=== PATIENT | female | born 1930 | race Two or more races ===

== ENCOUNTER 2017-04-18 05:21 | Inpatient (IN) | payer MEDICARE ==
[~2017-04-18] VITALS: Ht 162.6 cm; Wt 65.8 kg
[2017-04-18] MEDS ORDERED: METHOTREXATE2.5 MG PO (05:40)
[2017-04-18] MEDS ORDERED: AMLODIPINE BESYL5 MG ORAL (05:40)
[2017-04-18] MEDS ORDERED: FOLIC ACID1 MG ORAL (05:40)
[2017-04-18] MEDS ORDERED: PLAQUENIL200 MG ORAL (05:40)
[2017-04-18] MEDS ORDERED: INH300 MG ORAL (05:40)
[2017-04-18] MEDS ORDERED: HUMIRA40 MG/0.2 SUBQ (05:40)
[2017-04-18] MEDS ORDERED: ATORVASTATIN CA20 MG ORAL (05:40)
[2017-04-18] MEDS ORDERED: DIPHENOXYLATE-1 EACH PO (05:40)
[2017-04-18] MEDS ORDERED: MONTELUKAST SOD10 MG ORAL (05:40)
[2017-04-18] MEDS ORDERED: DAILY MULTIVIT1 EAC3 PO (05:41)
[2017-04-18] MEDS ORDERED: VITAMIN D400 INTLU ORAL (05:41)
[2017-04-18] MEDS ORDERED: ALEVE220 M2 PO (05:41)
[2017-04-18] MEDS ORDERED: ASPIR 8181 MG ORAL (05:41)
[2017-04-18] MEDS ORDERED: Morphine Sulfate 2mg/ml Inj IVP ONE (06:00)
--- NOTE | 2017-04-18 06:20 | Emergency Room Report ---
History of Present Illness General Chief Complaint: Diarrhea Source: Patient (Mayank Pineda M.D.) Present Illness HPI The patient presents with weakness and abdominal cramps with diarrhea. The diarrhea is been a foul yellow color. Denies any blood. 7 vomiting but has felt nauseated. Her doctor prescribed for her over the phone number tell. She' s been taking that constantly and it hasn't affected the diarrhea. She states the pain has been a 6/10 in crampiness or in the lower abdomen recently. The patient is being treated for rheumatoid arthritis. She took methotrexate a day earlier this week however the diarrhea had been for several days before that. In addition to that she is on Humira. She's been on Humira for 3-4 months and it has improved her rheumatoid arthritis. She has no prior history of GI disorders. She denies any contacts, recent travel or unusual foods. She denies any chest pain, cough or sore throat. Her joint pain is improved recently. She denies dysuria or hematuria. She feels weak and was confused earlier in the week about taking her medication. She has not been eating. The weakness is generalized. Some dizziness when standing. (Mayank Pineda M.D.) Allergies: Coded Allergies: TRAMADOL (Verified Allergy, Unknown, 04/18/17) stomach cramps Patient History Past Medical History: see triage record Social History: Denies: smoking, alcohol use, drug use Social History Narrative with son and daughter Last Menstrual Period: None Now: No Reviewed Nursing Documentation: PMH: Agreed, PSxH: Agreed (Mayank Pineda M.D.) Nursing Documentation-PMH Hx Hypertension: Yes - hyperlipidemia Hx Cancer: Yes - Breast Cancer (Mayank Pineda M.D.) Review of Systems All Other Systems: negative except mentioned in HPI (Mayank Pineda M.D.) Physical Exam Vital Signs Date Time Temp Pulse Resp B/P (MAP) Pulse Ox O2 Delivery O2 Flow Rate FiO2 04/18/17 05:24 98.1 89 20 119/73 98 Room Air Sp02 EP Interpretation: reviewed, normal General Appearance: well appearing, no apparent distress, GCS 15, thin Head: normocephalic Eyes: bilateral eye normal inspection, bilateral eye other - arcus ENT: moist mucus membranes Neck: supple Respiratory: lungs clear, normal breath sounds Cardiovascular #1: regular rate, rhythm Cardiovascular #2: 2+ radial (R) Gastrointestinal: normal inspection, normal bowel sounds, no mass, non- distended, no guarding, no rebound, tenderness - lower abdomen Rectal: heme positive stool - yellow Genitourinary: no CVA tenderness Musculoskeletal: back normal, gait/station normal, normal range of motion, swelling - MCP Neurologic: alert, oriented x3, grossly normal Psychiatric: mood/affect normal Skin: normal inspection, warm/dry (Mayank Pineda M.D.) Medical Decision Making Diagnostic Impression: Primary Impression: Abdominal pain Qualified Codes: R10.32 - Left lower quadrant pain Additional Impressions: GI bleeding Qualified Codes: K92.2 - Gastrointestinal hemorrhage, unspecified Weakness Diarrhea Qualified Codes: R19.7 - Diarrhea, unspecified Rheumatoid arthritis Qualified Codes: M05.79 - Rheumatoid arthritis with rheumatoid factor of multiple sites without organ or systems involvement Use of Humira and methotrexate ER Course Patient on methotrexate and Humira with diarrhea and weakness. DDx: viral gastroenteritis, colitis, ischemic bowel, adverse reaction to medication, diverticulitis, diverticulosis, opportunistic infection, tumor, invasive diarrhea, dehydration, cardiac cause of weakness amongst others. At risk patient due to immune active medications. Evidence of blood in stool. Weakness needs evaluation for possible cardiac cause. Evaluation with EKG, labs , CT abdomen/pelvis. Treatment with IV hydration, zofran and small dose morphine. Labs significant for low WBC, slight anemia. UA and lytes normal. Some improvement with IV hydration and meds. Needs admission for observation and further work up. Contact Dr. Carrillo for admission. Pending CT scan. Signed out to Dr. Adams. Laboratory Tests Test 04/18/17 06:20 04/18/17 07:25 White Blood Count 5.1 K/UL (4.8-10.8) Red Blood Count 3.76 M/UL (4.20-5.40) L Hemoglobin 11.9 G/DL (12.0-16.0) L Hematocrit 35.0 % (37.0-47.0) L Mean Corpuscular Volume 93 FL (80-99) Mean Corpuscular Hemoglobin 31.6 PG (27.0-31.0) H Mean Corpuscular Hemoglobin Concent 33.9 G/DL (32.0-36.0) Red Cell Distribution Width 13.4 % (11.6-14.8) Platelet Count 298 K/UL (150-450) Mean Platelet Volume 6.4 FL (6.5-10.1) L Neutrophils (%) (Auto) 70.8 % (45.0-75.0) Lymphocytes (%) (Auto) 20.1 % (20.0-45.0) Monocytes (%) (Auto) 7.2 % (1.0-10.0) Eosinophils (%) (Auto) 0.9 % (0.0-3.0) Basophils (%) (Auto) 1.0 % (0.0-2.0) Prothrombin Time Pending Prothrombin Time INR Pending PTT Pending Sodium Level 140 MMOL/L (136-145) Potassium Level 4.2 MMOL/L (3.5-5.1) Chloride Level 104 MMOL/L (98-107) Carbon Dioxide Level 25 MMOL/L (21-32) Anion Gap 11 mmol/L (5-15) Blood Urea Nitrogen 13 mg/dL (7-18) Creatinine 1.0 MG/DL (0.55-1.30) Estimate Glomerular Filtration Rate mL/min (>60) Glucose Level 101 MG/DL (74-106) Calcium Level 9.2 MG/DL (8.5-10.1) Total Bilirubin 0.7 MG/DL (0.2-1.0) Aspartate Amino Transferase (AST) 35 U/L (15-37) Alanine Aminotransferase (ALT) Pending Alkaline Phosphatase 55 U/L (46-116) Total Creatine Kinase 84 U/L (26-308) Troponin I 0.000 ng/mL (0.000-0.056) Total Protein 7.1 G/DL (6.4-8.2) Albumin 3.2 G/DL (3.4-5.0) L Globulin 3.9 g/dL Albumin/Globulin Ratio 0.8 (1.0-2.7) L Lipase 98 U/L (73-393) Urine Color Pale yellow Urine Appearance Clear Urine pH 7 (4.5-8.0) Urine Specific [place] 1.010 (1.005-1.035) Urine Protein Negative (NEGATIVE) Urine Glucose (UA) Negative (NEGATIVE) Urine Ketones Negative (NEGATIVE) Urine Occult Blood 1+ (NEGATIVE) H Urine Nitrite Negative (NEGATIVE) Urine Bilirubin Negative (NEGATIVE) Urine Urobilinogen Normal MG/DL (0.0-1.0) Urine Leukocyte Esterase Negative (NEGATIVE) Urine RBC Pending Urine WBC Pending Urine Squamous Epithelial Cells Pending Urine Bacteria Pending (Mayank Pineda M.D.) ER Course Please refer to the initial history examined the presentation At this time essentially the CT abdomen pelvis was pending There is evidence of diverticulosis no evidence of diverticulitis patient has done better with intervention in the ER And continued admission to panel Labs Test 04/18/17 06:20 04/18/17 07:25 White Blood Count 5.1 K/UL (4.8-10.8) Red Blood Count 3.76 M/UL (4.20-5.40) Hemoglobin 11.9 G/DL (12.0-16.0) Hematocrit 35.0 % (37.0-47.0) Mean Corpuscular Volume 93 FL (80-99) Mean Corpuscular Hemoglobin 31.6 PG (27.0-31.0) Mean Corpuscular Hemoglobin Concent 33.9 G/DL (32.0-36.0) Red Cell Distribution Width 13.4 % (11.6-14.8) Platelet Count 298 K/UL (150-450) Mean Platelet Volume 6.4 FL (6.5-10.1) Neutrophils (%) (Auto) 70.8 % (45.0-75.0) Lymphocytes (%) (Auto) 20.1 % (20.0-45.0) Monocytes (%) (Auto) 7.2 % (1.0-10.0) Eosinophils (%) (Auto) 0.9 % (0.0-3.0) Basophils (%) (Auto) 1.0 % (0.0-2.0) Prothrombin Time 9.4 SEC (9.30-11.50) Prothromb Time International Ratio 0.9 (0.9-1.1) Activated Partial Thromboplast Time 21 SEC (23-33) Sodium Level 140 MMOL/L (136-145) Potassium Level 4.2 MMOL/L (3.5-5.1) Chloride Level 104 MMOL/L (98-107) Carbon Dioxide Level 25 MMOL/L (21-32) Anion Gap 11 mmol/L (5-15) Blood Urea Nitrogen 13 mg/dL (7-18) Creatinine 1.0 MG/DL (0.55-1.30) Estimat Glomerular Filtration Rate mL/min (>60) Glucose Level 101 MG/DL (74-106) Calcium Level 9.2 MG/DL (8.5-10.1) Total Bilirubin 0.7 MG/DL (0.2-1.0) Aspartate Amino Transf (AST/SGOT) 35 U/L (15-37) Alanine Aminotransferase (ALT/SGPT) 19 U/L (12-78) Alkaline Phosphatase 55 U/L (46-116) Total Creatine Kinase 84 U/L (26-308) Troponin I 0.000 ng/mL (0.000-0.056) Total Protein 7.1 G/DL (6.4-8.2) Albumin 3.2 G/DL (3.4-5.0) Globulin 3.9 g/dL Albumin/Globulin Ratio 0.8 (1.0-2.7) Lipase 98 U/L (73-393) Urine Color Pale yellow Urine Appearance Clear Urine pH 7 (4.5-8.0) Urine Specific [place] 1.010 (1.005-1.035) Urine Protein Negative (NEGATIVE) Urine Glucose (UA) Negative (NEGATIVE) Urine Ketones Negative (NEGATIVE) Urine Occult Blood 1+ (NEGATIVE) Urine Nitrite Negative (NEGATIVE) Urine Bilirubin Negative (NEGATIVE) Urine Urobilinogen Normal MG/DL (0.0-1.0) Urine Leukocyte Esterase Negative (NEGATIVE) Urine RBC 2-4 /HPF (0 - 2) Urine WBC 0-2 /HPF (0 - 2) Urine Squamous Epithelial Cells Occasional /LPF Urine Bacteria Few /HPF (NONE) (DAVI ADAMS D.O.) EKG Diagnostic Results Rate: normal Rhythm: NSR ST Segments: no acute changes (Mayank Pineda M.D.) Rhythm Strip Diag. Results EP Interpretation: yes Rhythm: NSR, no PVC's, no ectopy (Mayank Pineda M.D.) CT/MRI/US Diagnostic Results CT/MRI/US Diagnostic Results : Impression CT abdomen pelvis: Impression: Diverticulosis involving the colon. No obvious diverticulitis. Atherosclerotic disease. Spondylosis Bilateral renal cysts. Small hypodensity in the liver probably a cyst not well characterized Hiatal hernia (JAMDAVI FOWLER D.O.) Status: improved (Mayank Pineda M.D.) Status: improved (DAVI ADAMS D.O.) Disposition: ADMITTED INPATIENT Condition: Serious Referrals: NOT CHOSEN MIRELA/,REFERRING (PCP) Mayank Pineda M.D. Apr 18, 2017 06:20 DAVI ADAMS D.O. Apr 18, 2017 10:20
[2017-04-18 07:08] VITALS: BP 161/67
[2017-04-18 07:09] LABS: EOSINOPHILS % (AUTO) 0.9 % (0.0-3.0); LYMPHOCYTES % (AUTO) 20.1 % (20.0-45.0); MEAN CORPUSCULAR HEMOGLOBIN 31.6 PG (27.0-31.0); MEAN CORPUSCULAR HGB CONC 33.9 G/DL (32.0-36.0); MEAN CORPUSCULAR VOLUME 93 FL (80-99); MEAN PLATELET VOLUME 6.4 FL (6.5-10.1); MONOCYTES % (AUTO) 7.2 % (1.0-10.0); NEUTROPHILS % (AUTO) 70.8 % (45.0-75.0); PLATELET COUNT 298 K/UL (150-450); RED BLOOD COUNT 3.76 M/UL (4.20-5.40); RED CELL DISTRIBUTION WIDTH 13.4 % (11.6-14.8); WHITE BLOOD COUNT 5.1 K/UL (4.8-10.8)
[2017-04-18 07:38] VITALS: BP 148/49
[2017-04-18 07:47] LABS: APPEARANCE,URINE CLEAR; KETONES,URINE NEGATIVE (NEGATIVE); LEUKOCYTE ESTERASE ,URINE NEGATIVE (NEGATIVE); NITRITE,URINE NEGATIVE (NEGATIVE); PH,URINE 7 (4.5-8.0); PROTEIN,URINE NEGATIVE (NEGATIVE); UROBILINOGEN,URINE NORMAL MG/DL (0.0-1.0)
[2017-04-18 07:50] LABS: ALBUMIN/GLOBULIN RATIO 0.8 (1.0-2.7); ANION GAP 11 mmol/L (5-15); ASPARTATE AMINO TRANSFERASE 35 U/L (15-37); CALCIUM 9.2 MG/DL (8.5-10.1); CARBON DIOXIDE 25 MMOL/L (21-32); CHLORIDE 104 MMOL/L (98-107); LIPASE 98 U/L (73-393); POTASSIUM 4.2 MMOL/L (3.5-5.1); SODIUM 140 MMOL/L (136-145); TOTAL PROTEIN 7.1 G/DL (6.4-8.2)
[2017-04-18 08:25] LABS: INR 0.9 (0.9-1.1); PROTHROMBIN TIME 9.4 SEC (9.30-11.50)
[2017-04-18 08:41] LABS: BACTERIA,URINE FEW /HPF; SQUAMOUS EPITHELIAL CELL,UR OCCASIONAL /LPF (NONE/OCC); WBC,URINE 0-2 /HPF (0 - 2)
[2017-04-18 09:17] LABS: ALANINE AMINOTRANSFERASE 19 U/L (12-78)
[2017-04-18 10:12] VITALS: BP 144/64
--- NOTE | 2017-04-18 10:13 | Diagnostic Imaging Report ---
Indication: Abdominal pain Technique: Continuous helical transaxial imaging of the abdomen and pelvis was obtained from the lung bases to the pubic symphysis during intravenous contrast administration. Coronal 2-D reformats were also obtained. Study obtained in a Siemens sensation [address] Total Dose length Product (DLP): [address] Dose Index Volume (CTDIvol): 0.15, 13.68 mGy Comparison: None Findings: Diverticula noted throughout the colon. Bilateral renal cysts are present. There is a hiatal hernia. Tiny hypodensity noted in the right lobe of the liver near the dome. Gallbladder is unremarkable. Aorta is moderately calcified. No free fluid or free air identified. Appendix not definitely seen but there are no secondary signs of acute appendicitis. There is narrowing of intervertebral discs and accompanying endplate osteophyte formation. Hypertrophied facet joints also demonstrated.. Generalized osteopenia demonstrated. Impression: Diverticulosis involving the colon. No obvious diverticulitis. Atherosclerotic disease. Spondylosis Bilateral renal cysts. Small hypodensity in the liver probably a cyst not well characterized Hiatal hernia The CT scanner at [facility] is accredited by the [employer] and the scans are performed using dose optimization techniques as appropriate to a performed exam including Automatic Exposure control.
[2017-04-18] MEDS ORDERED: FISH OIL CAP1000 MG ORAL (10:53)
[2017-04-18] MEDS ORDERED: VITAMIN B COMP1 EAC2 ORAL (10:53)
[2017-04-18 11:23] VITALS: BP 132/80
[2017-04-18] MEDS: D5NS 1,000 ML IV SCH (12:36)
[2017-04-18 16:03] VITALS: BP 121/53
[2017-04-18] MEDS: Montelukast 10mg tablet ORAL SCH (16:37)
[2017-04-18] MEDS: Loperamide 2mg cap ORAL PRN ×2 (18:26→22:29)
[2017-04-18 20:00] VITALS: BP 128/65
[2017-04-18] MEDS: Atorvastatin 20mg tab ORAL SCH (20:21)
[2017-04-18] MEDS: Heparin 5000 units/ml inj SUBQ SCH (20:26)
[2017-04-18] MEDS: Zolpidem 5mg tab ORAL PRN (22:29)
[2017-04-19] VITALS: BP 131/52
[2017-04-19] MEDS: D5NS 1,000 ML IV SCH ×2 (01:08→15:30)
--- NOTE | 2017-04-19 03:15 | Consultation ---
DATE OF CONSULTATION: 04/18/2017 GASTROENTEROLOGY CONSULTATION CHIEF COMPLAINT: I was asked to see this patient by Dr. Mayank Carrillo for evaluation of diarrhea. HISTORY OF PRESENT ILLNESS: The patient is a pleasant 86-year-old white woman with a nine-day history of diarrhea. She states that the stool was yellow, watery, and occurs several times a day. She was given some Imodium with some benefit. The patient has had no nausea and vomiting. No abdominal pain. No hematochezia. She is on methotrexate and Humira for rheumatoid arthritis. Today, her diarrhea is somewhat better. Her last colonoscopy was more than four years ago. PAST MEDICAL HISTORY: 1. History of rheumatoid arthritis. 2. Hyperlipidemia. MEDICATIONS: See the chart list for details. SOCIAL HISTORY: The patient lives with her son and daughter. She does not smoke or drink alcohol. FAMILY HISTORY: Noncontributory. REVIEW OF SYSTEMS: Otherwise negative. PHYSICAL EXAMINATION: GENERAL: The patient is a pleasant elderly white woman, seen in her room. HEENT: Normocephalic and atraumatic. Sclerae anicteric. Oropharynx clear. NECK: Supple. CHEST: Clear to auscultation. CARDIOVASCULAR: Revealed regular rate. ABDOMEN: Soft. Good bowel sounds. There is no organomegaly. EXTREMITIES: Revealed no edema. LABORATORY DATA: Noted. ASSESSMENT: This patient presents with a nine-day history of diarrhea of unclear etiology. The patient should be screened for usual pathogens including the Salmonella, Shigella, and Campylobacter. I will also check ova and parasites. Should her diarrhea persist and all cultures were negative then further evaluation with colonoscopy and biopsy may be indicated. In the meantime, since her white count is normal and she seems to be in no distress and nontender, she can be watched off of antibiotics. Probiotics should be added as an adjunctive therapy. RECOMMENDATIONS: Per above discussion and per orders written in the chart. Thank you for asking me to participate in the care of this patient. Celso Ribeiro M.D. DR: TAWNYA JOB#: [id number] CC:
[2017-04-19 03:30] VITALS: BP 142/72
--- NOTE | 2017-04-19 03:30 | History and Physical Report ---
DATE OF ADMISSION: 04/18/2017 REASON FOR ADMISSION: Refractory diarrhea. HISTORY OF PRESENT ILLNESS: This is an 86-year-old white female with a history of rheumatoid arthritis, who has been on Humira for the last three to four months in conjunction with methotrexate weekly. Two weeks ago, she and her family members went to a fair. Several of her family members including herself developed diarrhea with abdominal cramps, but recovered within a couple of days. The patient, however, has had persistent symptoms, which worsened on the day prior to admission. The patient did contact her primary care physician and was given a prescription for Lomotil that helped for several days, but stopped working over the past two days. The patient has not had any fevers or chills. No bloody diarrhea no nausea or vomiting. She has had some abdominal cramping. The patient notes that the diarrhea was voluminous over the day prior to admission prompting her to feel very weak and dehydrated. PAST MEDICAL HISTORY: History of breast cancer, hyperlipidemia, hypertension, rheumatoid arthritis, and degenerative disk disease. MEDICATIONS: Prior to admission, reviewed and reconciled. ALLERGIES: Tramadol. SOCIAL HISTORY: Negative for smoking, alcohol, or substance abuse. FAMILY HISTORY: Noncontributory. REVIEW OF SYSTEMS: No fevers or chills. No history of thyroid disorder or diabetes. No history of seizures or strokes. No history of myocardial infarction or rheumatic heart disease. No history of asthma or blood clots in the legs. Her urine output has diminished. She has not had any frequency or dysuria. PHYSICAL EXAMINATION: GENERAL: Appears well. VITAL SIGNS: Afebrile. Blood pressure 119/73, pulse 89, and respirations 20. HEENT: Conjunctivae are pink. Sclerae are anicteric. Oropharynx clear. Mucous membranes dry. NECK: Supple. Jugular venous pressure normal. LUNGS: Clear. CARDIAC: Regular rate and rate. Normal S1 and S2 with a fourth heart sound. ABDOMEN: Soft and nontender. EXTREMITIES: No clubbing or cyanosis. No edema. Turgor of the skin is decreased. RECTAL EXAM: According to the emergency room physician, revealed Hemoccult-positive yellow stool. LABORATORY DATA: White count 5.1 and hemoglobin 11.9. Potassium 4.2, BUN 13, and creatinine 1. Troponin negative. Albumin 3.2. Urinalysis with no active sediment. CAT scan of the abdomen and pelvis was obtained revealing diverticulosis, atherosclerosis, spondylosis, renal cysts, and a hiatal hernia. IMPRESSION: 1. Diarrhea, etiology unclear. Historically, the possibility of an infectious enteritis is present. 2. Mild dehydration and hypovolemia. 3. Mild anemia. 4. History of rheumatoid arthritis, on Humira, suggesting an immunocompromised state. 5. Mild protein-calorie malnutrition. PLAN: 1. Hydration. 2. Antidiarrheal agents. 3. Stool studies. 4. Gastrointestinal consult. 5. Cautiously advance diet. 6. Hold Humira and methotrexate at this time. Mayank Carrillo M.D. DR: ABBYE JOB#: [id number] CC:
[2017-04-19 08:13] VITALS: BP 123/52
[2017-04-19] MEDS: Aspirin Baby 81mg ORAL SCH (08:16)
[2017-04-19] MEDS: Vitamin D 400 INTLU TAB ORAL SCH (08:16)
[2017-04-19] MEDS: Heparin 5000 units/ml inj SUBQ SCH ×2 (08:18→20:15)
[2017-04-19] MEDS ORDERED: D5NS 1000ml IV ONE (08:53)
[2017-04-19 12:00] VITALS: BP 125/65
[2017-04-19 16:00] VITALS: BP 136/64
--- NOTE | 2017-04-19 17:25 | Cardiology Report ---
APPROVED REPORT EKG Measurement Heart [id number] Normal sinus rhythm Incomplete right bundle branch block Borderline ECG
[2017-04-19] MEDS: Lactobacillus-GG tablet ORAL SCH (17:48)
[2017-04-19] MEDS: Montelukast 10mg tablet ORAL SCH (17:48)
--- NOTE | 2017-04-19 19:18 | General Progress Note ---
Assessment/Plan Assessment/Plan Assessment - OB (+) Stools - resolved diarrhea Recommendations - po diet - patient advised to f/u with me for EGD/Colon after D/C Subjective Allergies: Coded Allergies: TRAMADOL (Verified Allergy, Unknown, 04/18/17) stomach cramps Subjective Feels better no diarrhea RN reported OB (+) after my visit Objective Last 24 Hour Vital Signs Date Time Temp Pulse Resp B/P (MAP) Pulse Ox O2 Delivery O2 Flow Rate FiO2 04/19/17 16:00 97.8 83 20 136/64 98 Room Air 04/19/17 12:00 98.0 76 18 125/65 95 Room Air 04/19/17 08:16 75 123/52 04/19/17 08:13 97.7 75 16 123/52 96 Room Air 04/19/17 03:30 97.7 72 18 142/72 93 Room Air 04/19/17 00:00 97.6 81 21 131/52 95 Room Air 04/18/17 20:00 97.5 73 20 128/65 94 Room Air Intake and Output 04/19/17 04/20/17 19:00 07:00 Intake Total 480 ml Balance 480 ml Intake Oral 480 ml # Voids 4 Height (Feet): 5 Height (Inches): 4.00 Weight (Pounds): 145 Objective WDWN NCAT supple CTA RRR Soft NT ND no edema non focal MAGDALENA PEREZ Apr 19, 2017 19:18
[2017-04-19 20:00] VITALS: BP 130/79
[2017-04-19] MEDS: Atorvastatin 20mg tab ORAL SCH (20:11)
[2017-04-19] MEDS: Zolpidem 5mg tab ORAL PRN (21:10)
[2017-04-20] VITALS: BP 133/75
[2017-04-20 04:00] VITALS: BP 158/72
[2017-04-20] MEDS: D5NS 1,000 ML IV SCH (04:06)
--- NOTE | 2017-04-20 05:00 | Progress Note ---
DATE: 04/19/2017 INTERNAL MEDICINE PROGRESS NOTE SUBJECTIVE: Stool for C. difficile was negative. Stool culture pending. Stool occult blood positive. Diarrhea has gone away. However, the patient has not had any bowel movement since admission and had eaten minimally. She has no fevers. OBJECTIVE: VITAL SIGNS: Blood pressure 136/64, pulse 83, and respirations 20. NECK: Supple. LUNGS: Clear. CARDIAC: Regular. ABDOMEN: Soft. EXTREMITIES: No edema. IMPRESSION: 1. Probable gastroenteritis, recovering. 2. Rheumatoid arthritis on immunosuppressants. 3. Hypertension controlled. 4. Hemoccult-positive stool. PLAN: 1. Recheck hemoglobin. 2. Await stool cultures. 3. Hold Humira. 4. Maintain adequate hydration by IV route. 5. Advance diet. 6. Outpatient colonoscopy to follow. Mayank Carrillo M.D. DR: NEHEMIAS JOB#: [id number] CC:
[2017-04-20 08:00] VITALS: BP 140/63
[2017-04-20] MEDS: Lactobacillus-GG tablet ORAL SCH ×2 (08:52→13:08)
[2017-04-20] MEDS: Vitamin D 400 INTLU TAB ORAL SCH (08:53)
[2017-04-20] MEDS: Aspirin Baby 81mg ORAL SCH (08:53)
[2017-04-20] MEDS: Heparin 5000 units/ml inj SUBQ SCH (09:00)
[2017-04-20 10:26] LABS: BASOPHILS % (AUTO) 0.8 % (0.0-2.0); EOSINOPHILS % (AUTO) 1.6 % (0.0-3.0); LYMPHOCYTES % (AUTO) 28.9 % (20.0-45.0); MEAN CORPUSCULAR HGB CONC 33.7 G/DL (32.0-36.0); MEAN CORPUSCULAR VOLUME 95 FL (80-99); MEAN PLATELET VOLUME 5.7 FL (6.5-10.1); MONOCYTES % (AUTO) 11.3 % (1.0-10.0); NEUTROPHILS % (AUTO) 57.4 % (45.0-75.0); PLATELET COUNT 250 K/UL (150-450); RED BLOOD COUNT 3.11 M/UL (4.20-5.40); RED CELL DISTRIBUTION WIDTH 13.6 % (11.6-14.8); WHITE BLOOD COUNT 3.5 K/UL (4.8-10.8)
[2017-04-20 10:51] LABS: ALANINE AMINOTRANSFERASE 20 U/L (12-78); ALBUMIN/GLOBULIN RATIO 0.8 (1.0-2.7); ANION GAP 7 mmol/L (5-15); ASPARTATE AMINO TRANSFERASE 19 U/L (15-37); CALCIUM 8.3 MG/DL (8.5-10.1); CARBON DIOXIDE 27 MMOL/L (21-32); CHLORIDE 110 MMOL/L (98-107); CREATININE 0.8 MG/DL (0.55-1.30); MAGNESIUM 1.8 MG/DL (1.8-2.4); POTASSIUM 3.3 MMOL/L (3.5-5.1); SODIUM 144 MMOL/L (136-145); TOTAL PROTEIN 6.2 G/DL (6.4-8.2)
[2017-04-20 12:30] VITALS: BP 153/65
[2017-04-20] MEDS ORDERED: D5NS 1000ml IV ONE (14:48)
--- NOTE | 2017-04-20 23:00 | General Progress Note ---
Assessment/Plan Assessment/Plan Assessment - OB (+) Stools - resolved diarrhea Recommendations - po diet - patient advised to f/u with me for EGD/Colon after D/C Subjective Allergies: Coded Allergies: TRAMADOL (Verified Allergy, Unknown, 04/18/17) stomach cramps Subjective Feels better no diarrhea d/w pt re OB (+) strongly advised outpt f/u for EGD/Colon Objective Last 24 Hour Vital Signs Date Time Temp Pulse Resp B/P (MAP) Pulse Ox O2 Delivery O2 Flow Rate FiO2 04/20/17 12:30 97.5 80 20 153/65 95 Room Air 04/20/17 08:52 76 140/63 04/20/17 08:00 97.3 76 20 140/63 94 Room Air 04/20/17 04:00 97.9 74 20 158/72 94 Room Air 04/20/17 00:00 98.2 73 20 133/75 96 Room Air Intake and Output 04/20/17 04/21/17 19:00 07:00 Intake Total 1000 ml Output Total 900 ml Balance 100 ml Intake Oral 550 ml IV Total 450 ml Output Urine Total 900 ml # Voids 3 Laboratory Tests 04/20/17 09:40: White Blood Count 3.5L, Red Blood Count 3.11L, Hemoglobin 9.9L, Hematocrit 29.5L , Mean Corpuscular Volume 95, Mean Corpuscular Hemoglobin 32.0H, Mean Corpuscular Hemoglobin Concent 33.7, Red Cell Distribution Width 13.6, Platelet Count 250, Mean Platelet Volume 5.7L, Neutrophils (%) (Auto) 57.4, Lymphocytes ( %) (Auto) 28.9, Monocytes (%) (Auto) 11.3H, Eosinophils (%) (Auto) 1.6, Basophils (%) (Auto) 0.8, Sodium Level 144, Potassium Level 3.3L, Chloride Level 110H, Carbon Dioxide Level 27, Anion Gap 7, Blood Urea Nitrogen 8, Creatinine 0.8, Estimat Glomerular Filtration Rate , Glucose Level 94, Calcium Level 8.3L, Magnesium Level 1.8, Total Bilirubin 0.3, Aspartate Amino Transf ( AST/SGOT) 19, Alanine Aminotransferase (ALT/SGPT) 20, Alkaline Phosphatase 48, Total Protein 6.2L, Albumin 2.8L, Globulin 3.4, Albumin/Globulin Ratio 0.8L Height (Feet): 5 Height (Inches): 4.00 Weight (Pounds): 145 Objective WDWN NCAT supple CTA RRR Soft NT ND no edema non focal MAGDALENA PEREZ Apr 20, 2017 23:00
--- NOTE | 2017-04-21 | Progress Note ---
DATE: 04/20/2017 INTERNAL MEDICINE PROGRESS NOTE SUBJECTIVE: The patient has not had any diarrhea since admission. She had a very small bowel movement today. She denies nausea, vomiting, or abdominal pain. OBJECTIVE: VITAL SIGNS: Blood pressure 153/65, pulse 80, respiratory rate 20, afebrile, and room air oxygen saturations are 94% to 96%. HEENT: Temporal wasting. NECK: Supple. Jugular venous pressure normal. LUNGS: Clear. CARDIAC: Regular rhythm and rate. Normal S1 and S2 with a fourth heart sound. ABDOMEN: Soft and nontender. No guarding or rebound. EXTREMITIES: Without edema. LABORATORY DATA: White count 3.5 and hemoglobin 9.9. Sodium 144, potassium 3.3, BUN 8, and creatinine 0.8. Albumin 2.8. Stool occult blood positive. IMPRESSION: 1. Diarrhea likely was due to gastroenteritis, now resolved. Consideration for Humira associated symptoms was discussed with the patient and this will be reviewed with her catering sales manager as an outpatient as well. 2. Anemia following hydration is likely dilutional. There was Hemoccult-positive stool noted, however, no significant signs of gastrointestinal bleeding was seen. The patient spoke with Dr. Ribeiro and elects to pursue on colonoscopy as an outpatient. After reviewing her status with her primary care physician, she was made aware to return to the emergency room should she have any overt bleeding noted. 3. Rheumatoid arthritis. We will resume Humira. 4. Moderate protein-calorie malnutrition. We will be resuming her regular diet as well as protein supplementation. 5. Hypokalemia, repleted today. Mayank Carrillo M.D. DR: NEHEMIAS JOB#: [id number] CC:
--- NOTE | 2017-04-21 14:39 | Discharge Summary ---
Discharge Summary Hospital Course Date of Admission Apr 18, 2017 at 06:34 Date of Discharge Apr 20, 2017 at 15:14 Admitting Diagnosis dysentery HPI Tanya Alejandre is a 86 year old female who was admitted on Apr 18, 2017 at 06:34 for Dysentery Hospital Course dc summary #[id number] Discharge Medications Continued Medications: Adalimumab (Humira) 40 Mg/0.8 Ml Pen.ij.kit 40 MG SUBQ twice a month, KIT Amlodipine Besylate* (Amlodipine Besylate*) 5 Mg Tablet 5 MG ORAL DAILY, TAB Aspirin* (Aspir 81*) 81 Mg Tablet.dr 81 MG ORAL DAILY, TAB Atorvastatin Calcium* (Atorvastatin Calcium*) 20 Mg Tablet 20 MG ORAL BEDTIME, TAB Diphenoxylate Hcl/Atropine (Diphenoxylate-Atropine Tablet) 1 Each Tablet Unknown Dose PO, TAB Fish Oil (Fish Oil 1,000 mg Capsule) 1 Each Capsule 100 MG ORAL DAILY, CAP Folic Acid* (Folic Acid*) 1 Mg Tablet 1 MG ORAL DAILY, TAB Hydroxychloroquine Sulfate* (Plaquenil*) 200 Mg Tablet 200 MG ORAL TWICE A DAY, TAB Isoniazid (Isoniazid) 300 Mg Tablet 300 MG ORAL DAILY, #10 TAB 0 Refills Methotrexate Sodium* (Methotrexate*) 2.5 Mg Tablet 2.5 MG PO, TAB Montelukast Sodium* (Montelukast Sodium*) 10 Mg Tablet 10 MG ORAL DAILY, TAB Mv-Mn/FA/Vit K/Lycop/Lut/Coq10 (Daily Multivitamin Capsule) 1 Each Capsule 1 EACH PO, CAP Naproxen Sodium (Aleve) 220 Mg Capsule 220 MG PO, CAP Vitamin B Complex (Vitamin B Complex) 1 Each Capsule 1 CAP ORAL, CAP 0 Refills Vitamin D (Vitamin D3) 400 Unit Tablet 200 UNITS ORAL DAILY, TAB Discharge Condition Upon Discharge: stable Discharge Disposition Patient was discharged to Home () Discharge Diagnoses: Discharge Instructions Discharge Instructions Special Instructions I have been assigned to complete a D/C Summary on this account. I was not involved in the patient management Ana Maria Jimenez NP (Vanchtein) Apr 21, 2017 14:39
--- NOTE | 2017-04-22 03:30 | Discharge Summary 2 SIG ---
DATE OF ADMISSION: 04/18/2017 DATE OF DISCHARGE: 04/20/2017 REASON FOR ADMISSION: 86-year-old female with a history of breast cancer, hyperlipidemia, hypertension, rheumatoid arthritis, and degenerative disk disease, presented to emergency room with a complaint of diarrhea. The patient and few of her family members developed diarrhea after fair that they went altogether. Her family members recovered within few days, however, the patient continued to have persistent symptoms with abdominal cramps and foul smelling diarrhea, which were getting progressively worse. Her primary medical doctor gave her prescription for Lomotil over the phone. It worked for few days, but then stopped working. The patient with a history of rheumatoid arthritis and was taking Humira and methotrexate and considering to be in immunocompromised state. The patient denied fever and chills. She denied bloody diarrhea, nausea, and vomiting. She did report abdominal cramping and some pain. The patient was afebrile. No leukocytosis. Evidence of mild anemia, hemoglobin- 11.9 and hematocrit -35. Urinalysis stable. Electrolytes stable. The patient was given IV hydration, medicated with Zofran, and given low dose of morphine. The patient was admitted for further management. HOSPITAL STAY: The patient was admitted. The patient was on IV hydration as well as on antidiarrheal agent. Stool studies were collected. Gastrointestinal consult was requested. Diet was slowly advanced as tolerated. Initially, Humira was hold. Stool OB proved to be positive. Gastrointestinal discussed with the patient the importance of followup as an outpatient for GI procedure. Mild anemia likely dilutional. The patient had evidence of initial dehydration and hypovolemia, which was replaced with IV hydration. Pain management was provided. Protein supplements were provided. Blood pressure was managed with the current antihypertensive medication regimen and was stable. Diarrhea resolved. Stool for C. difficile was negative. Stool culture revealed no evidence of Salmonella, Shigella, or Campylobacter infection. Patient was stable for discharge home. FINAL DIAGNOSIS Diarrhea Probable gastroenteritis Mild dehydration and hypervolemia RA , on immunosuppressive therapy Moderate protein calorie malnutrition HTN Hemo-occult positive stool DISCHARGE INSTRUCTIONS: The patient was stable for discharge home. Follow up as outpatient with primary medical doctor. Encouraged to drink sufficient amount of fluids. The patient was encouraged to follow up with the GI doctor for outpatient colonoscopy. DISCHARGE MEDICATIONS: see medication reconciliation list Mayank Carrillo M.D. I have been assigned to dictate discharge summary on this account and I was not involved in the patient's management. Ana Maria Peresmehreen NPadmini DR: LELIA JOB#: [id number] CC: [id number]
== END 2017-04-20 15:14 | disposition home or self-care (01) | DRG 392 ==
LOC: EMR 06:13 → 4E 06:34 → EDBEDREQ 07:00
DX: K52.9 Noninfective gastroenteritis and colitis, unspecified (principal); E44.0 Moderate protein-calorie malnutrition; E86.0 Dehydration; D64.9 Anemia, unspecified; M06.9 Rheumatoid arthritis, unspecified; I10 Essential (primary) hypertension; Z85.3 Personal history of malignant neoplasm of breast; E78.5 Hyperlipidemia, unspecified; Z88.6 Allergy status to analgesic agent; E87.6 Hypokalemia
CPT/HCPCS: 36415; 74177; 80053; 81003; 82270; 82550; 83690; 83735; 84484; 85025; 85610; 85730; 87045; 87324; 93005; 99285; J2405; J8499